=== PATIENT | male | born 1975 | race Caucasian/White ===

== ENCOUNTER → 2016-05-27 | Outpatient (CLI) | payer BC ==
[~2016-05-27] MED LIST: KEFLEX500 M1 PO
--- NOTE | ~2016-05-27 | US128 ---
[id number] [address] [address] [id number] O MR#: [id number] Acc #: [id number] NAME: SETH CHEN : 1975 SEX: M STUDY DATE/TIME: 05/27/2016 10:17 UNIT: [facility] ROOM: STUDY DESCRIPTION: US Thyroid Attending Physician: Poncho Ortega M.D. Referring Physician: Poncho Ortega M.D. Ordering Physician: Poncho Ortega M.D. Primary Care Physician: Vicky Sanchez M.D. MEDICAL IMAGING REPORT This report is preliminary unless electronic signature is present. EXAM Thyroid ultrasound 05/27/2016. INDICATIONS Follow up left thyroid nodules. TECHNIQUE Sonographic evaluation is performed of the thyroid gland in multiple planes. COMPARISON Comparison made with 09/16/2014. FINDINGS Right lobe measures 5.5 x 2.6 x 1.9 cm. The left lobe measures 4.5 x 2.1 x 2.2 cm. The isthmus measures about 3 mm in thickness. There are scattered subcentimeter hypoechoic cystic appearing nodules bilaterally which largely appears stable. The dominant nodule is in the right thyroid lobe, measuring up to 7 mm in size. This is unchanged. IMPRESSION Essentially stable appearance of multiple small circumscribed hypoechoic nodules on both sides of the gland. The largest of these is in the right mid thyroid gland, where it measures about 7 mm. This is stable as well. Dictated by... Anupam Jang Jr., M.D. THIS IS AN ELECTRONICALLY VERIFIED REPORT Anupam Jang Jr., M.D. at 05/28/2016 6:57 PM CUAUHTEMOC/shade TD: 05/28/2016 14:38 JOB #: [id number] MEDICAL IMAGING REPORT Page 1 of 1
== END | disposition home or self-care (01) ==
LOC: SGUS 08:52
DX: E04.1 Nontoxic single thyroid nodule (principal); E04.2 Nontoxic multinodular goiter
CPT/HCPCS: 76536